=== PATIENT | female | born 1935 | race Caucasian/White ===

== ENCOUNTER → 2017-01-16 | Outpatient (CLI) | payer OTHER ==
[~2017-01-16] MED LIST: AUGMENTIN 875875 MG PO; CELEXA10 MG PO; LEVOTHYROXIN0.088 MG PO; OMEPRAZOLE40 MG PO; OXYBUTYNIN 5 MG5 M2 PO; PERCOCET 5-3251 EACH PO; VALIUM5 MG PO; VITAMIN D2000 UNI1 PO
== END ==
LOC: RAD 03:03
DX: Z12.31 Encounter for screening mammogram for malignant neoplasm of breast (principal)

== ENCOUNTER → 2018-02-15 | Outpatient (CLI) | payer OTHER | LOC: RAD 01:37 | DX: Z12.31 Encounter for screening mammogram for malignant neoplasm of breast (principal) ==

== ENCOUNTER → 2018-07-16 | Outpatient (CLI) | payer OTHER ==
[~2018-07-16] VITALS: Ht 170.2 cm; Wt 70.8 kg
[~2018-07-16] MED LIST changes: +DITROPAN XL10 M1 PO; -LEVOTHYROXIN0.088 MG PO; +LEXAPRO 10 MG T10 M2 PO; +SYNTHROID88 MCG PO; +TRAZODONE HCL50 MG PO
--- NOTE | ~2018-07-16 | PATH ---
[facility] [address] [place] [address] PATHOLOGY RPT PROCEDURE Name: EVERT LIEBERMAN V Room #: REG [facility] Brothers.#: [id number] Admission: 07/16/18 Date of : 37 Discharge: Report #: [id number] Path Case #: [id number] [facility] Accession Number: [id number] . 01 Material submitted: . BX OF ESOPHAGUS HX OF BARRETTS . 01 Clinician provided ICD-10: R13.10 K44.9 . 01 Clinical history: . Pre-OP DX: Hx Bowers's Post-OP DX: Hiatal hernia, dysphagia . 02 Diagnosis: Gastroesophageal mucosa, esophagus history of Bowers's, endoscopic biopsy: - Focal specialized columnar epithelium (gastric cardia-type mucosa) with intestinal metaplasia, consistent with Bowers's metaplasia. - Negative for dysplasia. - Squamous mucosa with mild esophagitis. . (IUV:at;07/19/2018) QTA/07/19/2018 . 02 Electronically signed: . Maryam Tyler MD, Pathologist NPI- [id number] . 01 Gross description: . Received in formalin labeled "Evert Lieberman, BX of esophagus, hx of Bowers's," are 2 segments of gruber soft tissue measuring 0.7 x 0.3 x 0.3 cm in aggregate dimensions and ranging from 0.3 to 0.4 cm in maximum dimension. The specimen is submitted entirely in cassette A1. (TSD; 07/16/2018) TOB/TOB . 02 Pathologist provided ICD-10: K22.70, K20.9 . 02 CPT . 056612 Specimen Comment: A courtesy copy of this report has been sent to Specimen Comment: [phone], . Specimen Comment: Report sent to / DR CLIFTON Performed at: [address] [address] PATHOLOGY RPT PROCEDURE Name: EVERT LIEBERMAN V Room #: REG [facility]#: [id number] Admission: 07/16/18 Date of : 37 Discharge: Report #: [id number] Path Case #: [id number] [address], [place], [place] [id number] MD Yuri Juares MD Phone: [phone] Performed at: [address] [facility] [address] [id number] MD Maryam Tyler MD Phone: [phone]
--- NOTE | ~2018-07-16 | P ---
[facility] [place] [address] PROCEDURE REPORT Name: EVERT LIEBERMAN V [id number] Admission: 07/16/18 Attend Phys: Jet Pederson Discharge: Date of : 37 Report #: [id number] THIS REPORT FOR: //name// CC: Jet Eisenberg MD DATE OF SERVICE: 07/16/2018 PROCEDURE PERFORMED: Upper endoscopy with biopsies and esophageal dilation. HISTORY OF PRESENT ILLNESS: The patient is an 82-year-old female with a history of gastroesophageal reflux disease and Bowers's esophagus, previous biopsy showed Bowers's and no dysplasia. She is here for routine 3-year followup. She does complain of intermittent dysphagia. She has undergone previous dilations by myself in the past that has been helpful. Plan is for repeat upper endoscopy today. DESCRIPTION OF PROCEDURE: The risks and benefits of the procedure were explained to the patient, those risks including but not limited to bleeding, perforation, the risk of sedation. She understood these risks and gave informed consent. Sedation was given using propofol per anesthesia. Next, using a standard Olympus upper endoscope, the scope was placed in the patient's mouth and advanced under direct vision through the esophagus, stomach and into the second portion of the duodenum. The larynx was normal in appearance. The upper and mid esophagus was normal in appearance. At the GE junction, a possible tiny segment of Bowers's was noted. Biopsies were obtained. There was no evidence of stricture, no evidence of esophagitis. Upon entering the stomach, a small hiatal hernia was noted. Overall, the gastric mucosa was normal. The pylorus was normal and patent. The duodenal bulb, first and second portion were all normal. The scope was then brought back up into the patient's stomach and a Savary guidewire was inserted through the scope, leaving the guidewire in place as the scope was then withdrawn. Next, a 48-Turkish Savary dilation of the esophagus was then performed without difficulty. The wire and dilator removed. The scope was reintroduced into the patient's stomach. There was no evidence of mucosal tear after dilation. The scope was then withdrawn and the procedure terminated. The patient tolerated the procedure well. IMPRESSION: 1. Possible tiny segment of Bowers's esophagus, biopsies obtained. 2. Small hiatal hernia. 3. Otherwise, normal upper endoscopy. RECOMMENDATIONS: 1. Await biopsy results. 2. Continue daily PPI therapy. [address] [address] PROCEDURE REPORT Name: EVERT LIEBERMAN V Room #: REG [facility] Call#: [id number] Admission: 07/16/18 Attend Phys: Jet Pederson Discharge: Date of : 37 Report #: [id number] 3. Observe the patient status post dilation. Thank you for allowing me to participate in her care. <ELECTRONICALLY SIGNED> By: Jet Martinez MD 07/19/18816 09 2113 Jet Martinez MD /blayne
== END | disposition home or self-care (01) ==
LOC: GI 07:27
DX: K21.0 Gastro-esophageal reflux disease with esophagitis (principal); K31.89 Other diseases of stomach and duodenum; K44.9 Diaphragmatic hernia without obstruction or gangrene; K22.70 Barrett's esophagus without dysplasia; F41.9 Anxiety disorder, unspecified; F32.9 Major depressive disorder, single episode, unspecified; M81.0 Age-related osteoporosis without current pathological fracture; E03.9 Hypothyroidism, unspecified; I34.1 Nonrheumatic mitral (valve) prolapse; Z98.890 Other specified postprocedural states; Z88.1 Allergy status to other antibiotic agents; Z88.2 Allergy status to sulfonamides; Z91.09 Other allergy status, other than to drugs and biological substances; Z79.899 Other long term (current) drug therapy
CPT/HCPCS: 62110; 62900

== ENCOUNTER → 2018-08-18 | Outpatient (CLI) | payer OTHER ==
[~2018-08-18] VITALS: Ht 167.6 cm; Wt 70.8 kg
--- NOTE | ~2018-08-18 | P ---
[facility] [place] [address] PROCEDURE REPORT Name: EVERT LIEBERMAN V [id number] Admission: 08/18/18 Attend Phys: Jet Pederson Discharge: Date of : 37 Report #: [id number] THIS REPORT FOR: //name// CC: Jet Eisenberg DATE OF SERVICE: 08/18/2018 PROCEDURE PERFORMED: Flexible sigmoidoscopy. HISTORY OF PRESENT ILLNESS: The patient is an 82-year-old female with a history of fecal urgency, has had several episodes where she was almost not able to make it to the restroom, denies diarrhea, denies constipation. Denies any blood in her stools. No family history of colon cancer. She has a history of diverticulosis. Plan is for flexible sigmoidoscopy. DESCRIPTION OF PROCEDURE: The risks and benefits of the procedure were explained to the patient, those risks including but not limited to bleeding, perforation and the risk of sedation. She understood these risks and gave informed consent. Sedation was given using propofol per Anesthesia. Next, a digital rectal exam was initially performed, which was normal. Next, using a standard Olympus colonoscope, the scope was placed in the patient's anus and advanced under direct vision into the mid sigmoid colon, at which point there was a large amount of solid stool. The scope was then slowly withdrawn. A few scattered diverticula were noted in the sigmoid colon, no evidence of inflammation, otherwise normal. The rectal mucosa was normal. No abnormalities in the rectum were noted. On retroflexion, no abnormalities were noted. Anal canal was normal in appearance. The scope was then withdrawn and the procedure terminated. The patient tolerated the procedure well. IMPRESSION: 1. Sigmoid diverticulosis. 2. Otherwise normal. RECOMMENDATIONS: Trial of daily fiber. If the patient has continued symptoms, would consider a consultation of Colorectal Surgery. Thank you for allowing me to participate in her care. <ELECTRONICALLY SIGNED> By: Jet Martinez MD 08/20/18 1112 [id number] [id number] Jet Martinez MD /nt
== END | disposition home or self-care (01) ==
LOC: GI 07:12
DX: K57.30 Diverticulosis of large intestine without perforation or abscess without bleeding (principal); F41.9 Anxiety disorder, unspecified; F32.9 Major depressive disorder, single episode, unspecified; I34.1 Nonrheumatic mitral (valve) prolapse; K21.9 Gastro-esophageal reflux disease without esophagitis; K44.9 Diaphragmatic hernia without obstruction or gangrene; K22.70 Barrett's esophagus without dysplasia; M81.0 Age-related osteoporosis without current pathological fracture; E03.9 Hypothyroidism, unspecified; Z98.890 Other specified postprocedural states; Z90.710 Acquired absence of both cervix and uterus; Z88.2 Allergy status to sulfonamides; Z79.899 Other long term (current) drug therapy; Z90.89 Acquired absence of other organs; Z98.42 Cataract extraction status, left eye; Z98.41 Cataract extraction status, right eye; Z98.51 Tubal ligation status

== ENCOUNTER 2019-04-20 13:07 | Emergency (ER) | payer OTHER ==
[~2019-04-20] VITALS: Ht 172.7 cm; Wt 90.7 kg
[2019-04-20 14:40] LABS: ABSOLUTE NEUTROPHILS 7.4 thou/uL (1.4-8.2); BASOPHILS 0.4 % (0.0-2.0); EOSINOPHILS 0.8 % (0.0-3.0); HEMATOCRIT 36.3 % (37.0-47.0); HEMOGLOBIN 12.4 gm/dL (12.0-15.0); LYMPHOCYTES 7.8 % (24.0-44.0); MCH 30.5 pg (26.0-34.0); MCHC 34.2 g/dL (28.0-37.0); MCV 89.2 fL (80.0-100.0); MONOCYTES 7.5 % (1.0-8.0); PLATELET COUNT 227 thou/uL (150-400); POLYS 83.5 % (36.0-66.0); RBC 4.07 mil/uL (4.20-5.00); RDW 13.5 % (10.5-14.5); WBC 8.8 thou/uL (4.0-11.0)
[2019-04-20 14:47] LABS: CALCIUM 8.9 mg/dL (8.5-10.1); CREATININE 1.1 mg/dL (0.6-1.0); POTASSIUM 3.9 mmol/L (3.5-5.1)
[2019-04-20 14:53] LABS: ALBUMIN 3.9 g/dL (3.4-5.0); TOTAL BILIRUBIN 0.4 mg/dL (<0.1-1.0); TOTAL PROTEIN 7.1 g/dL (6.4-8.2)
[2019-04-20 14:54] VITALS: BP 161/73
[2019-04-20 15:18] LABS: URINE BILIRUBIN NEGATIVE (Negative); URINE BLOOD NEGATIVE (Negative); URINE CLARITY CLEAR; URINE COLOR YELLOW; URINE GLUCOSE-RANDOM* NEGATIVE (Negative); URINE KETONES NEGATIVE (Negative); URINE NITRITE-REFLEX NEGATIVE (Negative); URINE PROTEIN (DIPSTICK) TRACE (Negative); URINE UROBILINOGEN 0.2 E.U./dl (0.2-1.0)
[2019-04-20 15:19] LABS: URINE LEUKOCYTES-REFLEX 1+ (Negative)
[2019-04-20 15:26] LABS: MUCUS 4-6 Moderate strn/LPF (None Seen); SQUAMOUS 4-10 Moderate /LPF (0-3); URINE RBC 0-2 Rare /HPF (0-2)
[2019-04-20 15:27] LABS: BACTERIA-REFLEX 1-9 Few /HPF (None Seen); CRYSTALS None Seen /LPF (None Seen); HYALINE CASTS 0-3 Few /LPF (None Seen); URINE WBC-REFLEX 0-5 Rare /HPF (0-5)
== END 2019-04-20 16:08 | disposition home or self-care (01) ==
LOC: ER 13:07
PROVIDERS: Physician Assistant
DX: S00.03XA Contusion of scalp, initial encounter (principal); S10.93XA Contusion of unspecified part of neck, initial encounter; S00.83XA Contusion of other part of head, initial encounter; S80.01XA Contusion of right knee, initial encounter; M81.0 Age-related osteoporosis without current pathological fracture; E03.9 Hypothyroidism, unspecified; F32.9 Major depressive disorder, single episode, unspecified; F41.9 Anxiety disorder, unspecified; K21.9 Gastro-esophageal reflux disease without esophagitis; Z90.710 Acquired absence of both cervix and uterus; Z98.890 Other specified postprocedural states; Z91.048 Other nonmedicinal substance allergy status; Z88.2 Allergy status to sulfonamides; W18.39XA Other fall on same level, initial encounter; Y92.002 Bathroom of unspecified non-institutional (private) residence as the place of occurrence of the external cause; Y93.89 Activity, other specified; Y99.8 Other external cause status